=== PATIENT | male | born 1970 | race Caucasian/White ===

== ENCOUNTER 2018-10-16 23:56 | Emergency (ER) | payer OTHER ==
[~2018-10-16] VITALS: Wt 88.0 kg
[2018-10-17 00:03] VITALS: PULSE 69
--- NOTE | 2018-10-17 02:30 | ERD ---
ER Documentation Chief Complaint Chief Complaint L CP today started while watching tv; not in distres; HPI 47-year-old male, previously healthy except for history of environmental allergies, presents the emergency department, complaining of left chest wall pain. The patient reports a history of more than 6 months with similar episodes described as intermittent, sharp, lasting less than 5 seconds worsened by deep inspiration. Last episode today while the patient was watching TV. He denies palpitations, no dizziness, no shortness of breath, no blurred vision, no distal weakness, numbness or tingling. ROS All systems reviewed and are negative except as per history of present illness. Medications Home Meds Active Scripts Cetirizine Hcl* (Cetirizine Hcl*) 10 Mg Tablet, 10 MG PO DAILY, #30 TAB Prov:ART BARRIGA MD 10/17/18 Montelukast Sodium* (Montelukast Sodium*) 10 Mg Tablet, 10 MG PO QHS, #30 TAB Prov:ART BARRIGA MD 10/17/18 Allergies Allergies: Coded Allergies: No Known Allergy (Unverified , 10/17/18) PMhx/Soc Medical and Surgical Hx: pt denies Surgical Hx History of Surgery: No Anesthesia Reaction: No Hx Neurological Disorder: No Hx Respiratory Disorders: No Hx Cardiac Disorders: Yes (HYPERLIPIDEMIA ) Hx Psychiatric Problems: No Hx Miscellaneous Medical Probl: No Hx Alcohol Use: No Hx Substance Use: No Hx Tobacco Use: No Smoking Status: Never smoker Physical Exam Vitals Vital Signs Date Temp Pulse Resp B/P (MAP) Pulse Ox O2 O2 Flow FiO2 Time Delivery Rate 10/17/18 18 137/85 99 Room Air 02:57 (102) 10/17/18 99.7 69 20 157/91 98 00:03 (113) Physical Exam Const: No acute distress Head: Atraumatic Eyes: Normal Conjunctiva ENT: Normal External Ears, Nose and Mouth. Neck: Full range of motion. No meningismus. Resp: Clear to auscultation bilaterally Cardio: Regular rate and rhythm, no murmurs Abd: Soft, non tender, non distended. Normal bowel sounds Skin: No petechiae or rashes Back: No midline or flank tenderness Ext: No cyanosis, or edema Neur: Awake and alert Psych: Normal Mood and Affect Results 24 hrs EKG read by me: Rate/Rhythm: Regular rate and rhythm at a rate of 65 Intervals: Normal No acute ST changes. No T wave inversion Impression: No evidence of acute ischemia or arrhythmia Procedures/MDM Vital signs stable. Differential diagnosis include but not limited to: URI, PNA, chostochondritis, GERD, musculoskeletal injury, less likely PE, pericarditis, endocarditis. Pertinent Data: 12 Lead ECG: Sinus rhythm, no ST changes, normal T wave, normal intervals Physical examination and clinical presentation consistent most likely with atypical chest pain most likely musculoskeletal in nature, low suspicion for acute coronary event. During the ED course the patient remained stable, no new complaints. Results and clinical impression discussed with patient who agrees with management. The patient is stable to be treated outpatient and will be discharged home; some side effects of prescribed medications (headache, rash, nausea, vomiting, diarrhea, drowsiness, habituation, bleeding, hypertension, interactions with other medications) were reviewed. The patient was informed that the evaluation in the emergency department has been done to rule out an acute emergency, therefore, chronic conditions like malignancy or autoimmune diseases have not been evaluated; therefore, the patient was instructed to follow up with the primary care provider in the next 48h. If symptoms persist, worsen or new symptoms develop, then patient should return to the ED immediately. Instructions explained and given directly by me to the patient with acknowledgment and demonstrated understanding. Disclaimer: Inadvertent spelling and grammatical errors are likely due to EHR/dictation software use and do not reflect on the overall quality of patient care. Also, please note that the electronic time recorded on this note does not necessarily reflect the actual time of the patient encounter. Departure Diagnosis: Primary Impression: Atypical chest pain Additional Impression: Environmental allergies Condition: Stable Additional Instructions: Muchas olivier por [facility] para gordillo servicio. Esperamos que en gordillo visita a la sara de emergencia gordillo problema medico haya sido solucionado y que se sienta mucho mejor. Para estar seguros que gordillo mejoria sigue en proceso, le pedimos el favor de hacer carmen maine de seguimiento medico con gordillo doctor primario en los proximos 2-4 simons. Lleve con usted estos documentos y las medicinas recetadas. Si hilary sintomas empeoran, NO SE ESPERE, por favor regrese a sara de emergencia INMEDIATAMENTE. En edwin que usted no tenga un mdico de atencin primaria: Llame al mdico o clnica comunitaria de referencia que aparece abajo lauren las horas de consultorio para hacer carmen maine para que le vean. CLINICAS: [facility] [phone] [facility] [phone] [id number] [facility] [phone] [facility] [phone] [facility] [phone] [id number] [facility]. [phone] ART GALEAS MD October 17, 2018 02:30
[2018-10-17] MEDS ORDERED: MONT10TA24 PO (02:34)
[2018-10-17] MEDS ORDERED: CETI10TA19 PO (02:34)
[2018-10-17 02:57] VITALS: BP 137/85; RESP 18
== END 2018-10-17 02:58 | disposition home or self-care (01) ==
LOC: FTE 23:56
DX: R07.89 Other chest pain (principal)